=== PATIENT | female | born 1980 | race Hispanic/Latino ===

== ENCOUNTER 2024-08-29 11:48 | Emergency (ER) | payer BC ==
[2024-08-29] MEDS ORDERED: ACETAMINOPHEN 500 MG TAB ONE (12:44)
[2024-08-29 13:08] LABS: Specific Gravity 1.014 (1.005-1.030); Sqamous Epithelial <5 /HPF (None Seen); Urine Bacteria <20 /HPF (<20); Urine Bilirubin NEGATIVE (Negative); Urine Blood 3+ (OVER) (Negative); Urine Clarity Extremely Turbid (Clear); Urine Color Red (Yellow); Urine Crystals Unidentified Many /HPF (None Seen); Urine Culture Reflex Order REFLEXED; Urine Glucose NEGATIVE (Negative); Urine Ketones NEGATIVE (Negative); Urine Microscopic Reflex YN ORDER UMIC; Urine Nitrite NEGATIVE (Negative); Urine Protein 2+ (Negative); Urine RBC >50 /HPF (None Seen); Urine Urobilinogen Normal (Normal); Urine WBC 20-50 /HPF (<5); Urine pH 6.5 (5.0-7.0)
[2024-08-29 13:11] LABS: Absolute Eosinophils 0.1 K/uL (0-0.5); Absolute Lymphocytes (CBC) 1.6 K/uL (0.7-4.9); Absolute Monocytes 0.8 K/uL (0.1-1.3); Absolute Neutrophil 11.4 K/uL (1.8-8.0); Basophils % 0.3 % (0-1.3); Eosinophils % 0.7 % (0-4.4); Hematocrit 40.6 % (36.0-45.0); Hemoglobin 13.9 g/dL (12.0-15.0); Lymphocytes % 11.8 % (15.3-44.8); MCH 30.4 pg (27.0-35.0); MCHC 34.3 g/dL (32.0-36.0); MCV 88.6 fL (80-100); MPV 8.1 fL (7.6-11.3); Monocytes % 5.9 % (3.3-12.3); Neutrophils % 81.3 % (41.7-73.7); Platelets 277 thou/uL (152-406); RBC Red Blood Cell Count 4.58 M/uL (3.86-4.86); Red Cell Distribution Width 14.1 % (12.1-15.2)
[2024-08-29 13:18] LABS: Albumin 3.6 g/dL (3.4-5.0); Albumin/Globulin Ratio 0.9 (1.1-1.8); Anion Gap 8.6 mEq/L (5.0-15.0); Bilirubin Total 0.3 mg/dL (0.2-1.0); Globulin 3.8 g/dL (2.3-3.5); Potassium 3.6 mEq/L (3.5-5.1); Protein, Total 7.4 g/dL (6.4-8.2)
--- NOTE | 2024-08-29 13:39 | RAD REPORT ---
EXAMINATION: CT ABDOMEN AND PELVIS WITHOUT CONTRAST CLINICAL INDICATION: flank pain, hematuria TECHNIQUE: CT abdomen and pelvis was performed, without IV contrast, as per department protocol. Axia l, sagittal and coronal reconstructions were obtained. One or more of the following dose reduction techniques were used: Automated exposure control, adjustment of the mA and kV according to the patien t size, and iterative reconstruction. Unless otherwise specified, incidental findings do not require dedicated imaging follow-up. COMPARISON: No prior exam. FINDINGS: The lack of intravenous contrast limits the sensitivity of this exam for evaluation of solid visceral organs, vascular structures, and retroperitoneum. LOWER CHEST: The visualized lung bases are clear. LIVER:Normal in size and contour. No focal lesion. Grossly unremarkable gallbladder. SPLEEN: Normal size. No focal lesion. PANCREAS: No mass, ductal dilation, or neto-pancreatic fluid. ADRENALS: Normal; no mass. KIDNEYS AND URETERS: Normal size and contour. No hydronephrosis. URINARY BLADDER: Normal contour. GASTROINTESTINAL TRACT: No evidence of bowel obstruction, significant free fluid, free air or abscess . APPENDIX: Normal appendix. LYMPH NODES: No lymphadenopathy. MUSCULOSKELETAL: Mild lower lumbar spondylosis. ADDITIONAL FINDINGS: Small volume of free fluid in the pelvis. IMPRESSION: No acute or concerning abnormalities in the abdomen or pelvis, with evaluation limited by lack of IV contrast.
--- NOTE | 2024-08-29 14:32 | ER ---
Nurse's Notes [facility] Name: Yasmin Soto Age: 44 yrs Sex: Female : 1980 Arrival Date: 08/29/2024 Time: 11:48 Bed 6 Private MD: Axel Ellington V Diagnosis: UTI/ Urinary tract infection, site not specified;Gross hematuria Presentation: 08/29 12:16 Chief complaint: Patient states: urine frequency and mild pian with urination today , iw also blood in urine when she wiped. Coronavirus screen: At this time, the client does not indicate any symptoms associated with coronavirus-19. Ebola Screen: No symptoms or risks identified at this time. Initial Sepsis Screen: Does the patient meet any 2 criteria? Does the patient have a suspected source of infection? No. Patient's initial sepsis screen is negative. Risk Assessment: Do you want to hurt yourself or someone else? Patient reports no desire to harm self or others. Onset of symptoms was August 29, 2024. 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 - Infectious Disease History:: Denies. - Social history:: Smoking status: Patient denies any tobacco usage or history of. Patient/guardian denies using street drugs, IV drugs, tobacco products. Screenin:40 [facility] ED Fall Risk Assessment (Adult) History of falling in the last 3 months, le1 including since admission No falls in past 3 months (0 pts) Confusion or Disorientation No (0 pts) Intoxicated or Sedated No (0 pts) Impaired Gait No (0 pts) Mobility Assist Device Used No (0 pt) Altered Elimination Yes (1 pt) Score/Fall Risk Level 0 - 2 = Low Risk Oriented to surroundings, Maintained a safe environment, Educated pt \T\ family on fall prevention, incl call for assistance when getting out of bed, Assessed \T\ reinforced patient's understanding of fall precautions, Hourly rounding (assess needs \T\ fall precautionary measures) done. Abuse screen: Denies threats or abuse. Denies injuries from another. Nutritional screening: No deficits noted. Tuberculosis screening: No symptoms or risk factors identified. Assessment: 12:39 General: Appears in no apparent distress. Behavior is calm, cooperative. Pain: le1 Complains of pain in pelvis Pain does not radiate. Pain currently is 4 out of 10 on a pain scale. Quality of pain is described as burning, Discomfort. Neuro: No deficits noted. Cardiovascular: No deficits noted. Respiratory: No deficits noted. GI: No deficits noted. : Reports burning with urination, vaginal bleeding that is with urination. EENT: No deficits noted. Musculoskeletal: No deficits noted. Vital Signs: 12:16 BP 135 / 93; Pulse 75; Resp 16; Temp 97.5; Pulse Ox 99% on R/A; Weight 74.84 kg; Height iw 5 ft. 5 in. ; Pain 4/10; 13:34 BP 132 / 86; Pulse 75; Resp 16; Pulse Ox 96% on R/A; le1 14:32 BP 121 / 79; Pulse 69; Resp 16; Temp 98.4(O); Pulse Ox 94% on R/A; Pain 0/10; le1 12:16 Body Mass Index 27.46 (74.84 kg, 165.1 cm) iw 12:16 Pain Scale: Adult iw 14:32 Pain Scale: Adult le1 ED Course: 11:49 Patient arrived in ED. am2 11:50 Levi Walter MD is Attending Physician. rt 11:50 Axel Ellington MD is Private Physician. am2 12:17 Triage completed. iw 12:18 Arm band placed on. iw 12:24 Juwan Montoya, ANNE is Primary Nurse. le1 12:40 Patient has correct armband on for positive identification. Placed in gown. Bed in low le1 position. Call light in reach. Side rails up X2. Provided Education on: Informed to use call light if needing assistance. 12:53 CBC with Diff Sent. le1 12:53 CMP Sent. le1 12:53 Urinalysis w/ reflexes Sent. le1 13:16 CT Abd/Pelvis - Without Contrast In Process Unspecified. EDMS 13:18 Urine obtained. le1 13:18 Initial lab(s) drawn, by me, sent to lab. Urine collected: clean catch specimen, blood le1 tinged, Amount Voided: 50mL. Inserted saline lock: 20 gauge in right antecubital area, using aseptic technique. Blood collected. Flushed with 10 mL NS. 14:31 Salomon Lacey MD is Referral Physician. rt 14:33 No provider procedures requiring assistance completed. IV discontinued, intact, le1 bleeding controlled, No redness/swelling at site. Pressure dressing applied. Administered Medications: 12:53 Drug: Acetaminophen PO 1000 mg PO once Route: PO; le1 12:54 Follow up: Response: No adverse reaction le1 Medication: 14:33 VIS not applicable for this client. le1 Outcome: 14:31 Discharge ordered by MD. rt 14:33 Discharged to home ambulatory, le1 14:33 Condition: good 14:33 Discharge instructions given to patient, Instructed on discharge instructions, follow up and referral plans. Demonstrated understanding of instructions, follow-up care, 14:34 Discharge instructions given to Instructed on medication usage, Demonstrated le1 understanding of medications, Prescriptions given X 1, 14:39 Patient left the ED. le1 Signatures: Dispatcher [employer] EDMS Carla Mercado, RN RN iw Cassidy Iniguez Ryan, MD MD rt Juwan Montoya RN RN le1 Corrections: (The following items were deleted from the chart) 12:18 12:16 Pulse 75bpm; Resp 16bpm; Pulse Ox 99% RA; Temp 97.5F; iw iw
--- NOTE | 2024-08-29 14:32 | EDPHYS ---
Physician Documentation [facility] Name: Yasmin Soto Age: 44 yrs Sex: Female : 1980 Arrival Date: 08/29/2024 Time: 11:48 Bed 6 Private MD: Axel Ellington V ED Physician Levi Walter HPI: 08/29 18:06 This 44 yrs old Female presents to ER via Ambulatory with complaints of Pain rt With Urination, Urinary Problem - blood. 18:06 Patient presents to the ED with about 2 days of dysuria. Patient noticeable bit of pink rt color when she wiped earlier but states that then she developed a gross hematuria. Denies clots, bladder fullness. Denies abdominal pain, acute complaints, symptoms are moderate in severity, no other aggravating alleviating factors. 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 - Infectious Disease History:: Denies. - Social history:: Smoking status: Patient denies any tobacco usage or history of. Patient/guardian denies using street drugs, IV drugs, tobacco products. ROS: 18:06 Constitutional: Negative for fever, chills, and weight loss, Cardiovascular: Negative rt for chest pain, palpitations, and edema, Respiratory: Negative for shortness of breath, cough, wheezing, and pleuritic chest pain, Abdomen/GI: Negative for abdominal pain, nausea, vomiting, diarrhea, and constipation, MS/Extremity: Negative for injury and deformity, Skin: Negative for injury, rash, and discoloration, 18:06 : Positive for hematuria, burning with urination, Exam: 18:06 Constitutional: This is a well developed, well nourished patient who is awake, alert, rt and in no acute distress. Head/Face: Normocephalic, atraumatic. Chest/axilla: Normal chest wall appearance and motion. Nontender with no deformity. No lesions are appreciated. Cardiovascular: Regular rate and rhythm with a normal S1 and S2. No gallops, murmurs, or rubs. Normal PMI, no JVD. No pulse deficits. Respiratory: Lungs have equal breath sounds bilaterally, clear to auscultation and percussion. No rales, rhonchi or wheezes noted. No increased work of breathing, no retractions or nasal flaring. Abdomen/GI: Soft, non-tender, with normal bowel sounds. No distension or tympany. No guarding or rebound. No evidence of tenderness throughout. Skin: Warm, dry with normal turgor. Normal color with no rashes, no lesions, and no evidence of cellulitis. MS/ Extremity: Pulses equal, no cyanosis. Neurovascular intact. Full, normal range of motion. Neuro: Awake and alert, GCS 15, oriented to person, place, time, and situation. Cranial nerves II-XII grossly intact. Motor strength 5/5 in all extremities. Sensory grossly intact. Cerebellar exam normal. Normal gait. Vital Signs: 12:16 BP 135 / 93; Pulse 75; Resp 16; Temp 97.5; Pulse Ox 99% on R/A; Weight 74.84 kg; Height iw 5 ft. 5 in. ; Pain 4/10; 13:34 BP 132 / 86; Pulse 75; Resp 16; Pulse Ox 96% on R/A; le1 14:32 BP 121 / 79; Pulse 69; Resp 16; Temp 98.4(O); Pulse Ox 94% on R/A; Pain 0/10; le1 12:16 Body Mass Index 27.46 (74.84 kg, 165.1 cm) iw 12:16 Pain Scale: Adult iw 14:32 Pain Scale: Adult le1 MDM: 12:29 Medical Screening Exam initiated rt 18:06 Differential Diagnosis Gross hematuria, cystitis, kidney stone. Data reviewed: vital rt signs, nurses notes, lab test result(s), radiologic studies. Independent interpretation of the following test(s) in the Emergency Department CT Scan: My interpretation is No ureteral stone seen on monitor potation of CT scan images. Counseling: I had a detailed discussion with the patient and/or guardian regarding the historical points, exam findings, and any diagnostic results supporting the discharge/admit diagnosis, lab results, radiology results, the need for outpatient follow up, to return to the emergency department if symptoms worsen or persist or if there are any questions or concerns that arise at home. Response to treatment: There is no appreciated change of the patient's symptoms at this time. 08/29 12:36 Order name: CBC with Diff; Complete Time: 13:48 rt 08/29 12:36 Order name: CMP; Complete Time: 13:48 rt 08/29 12:36 Order name: Urinalysis w/ reflexes; Complete Time: 13:48 rt 08/29 13:11 Order name: Urine Culture EDAR 08/29 12:36 Order name: CT Abd/Pelvis - Without Contrast; Complete Time: 13:48 rt Administered Medications: 12:53 Drug: Acetaminophen PO 1000 mg PO once Route: PO; le1 12:54 Follow up: Response: No adverse reaction le1 Disposition Summary: 08/29/24 14:31 Discharge Ordered Notes: Location: Home rt Problem: new rt Symptoms: have improved rt Condition: Stable rt Diagnosis - UTI/ Urinary tract infection, site not specified rt - Gross hematuria rt Followup: rt - With: Salomon Lacey MD - When: 7 - 10 days - Reason: Discharge Instructions: - Discharge Summary Sheet rt - Hematuria, Adult rt - Urinary Tract Infection, Adult rt Forms: - Medication Reconciliation Form rt - Antibiotic Education rt - Prescription Opioid Use rt - Patient Portal Instructions rt - Leadership Thank You Letter rt Prescriptions: - cefpodoxime 200 mg Oral tablet - take 1 tablet ORAL route every 12 hours with food; 14 tablet; Refills: 0, rt Product Selection Permitted Signatures: Dispatcher [employer] Carla Sheffield RN RN iw [place], Ryan, MD MD rt Juwan Montoya RN RN le1
[2024-08-29 15:00] VITALS: BP 121/79; TEMP 98.4; O2SAT 94
== END 2024-08-29 14:39 | disposition home or self-care (01) ==
LOC: ER 11:48
DX: N39.0 Urinary tract infection, site not specified (principal)
CPT/HCPCS: 36415; 74176; 80053; 81001; 85025; 87077; 87086; 87088; 87186; 99284